=== PATIENT | male | born 1960 | race Caucasian/White ===

== ENCOUNTER → 2017-02-08 | Outpatient (CLI) | payer OTHER, BC ==
--- NOTE | 2017-02-08 10:15 | KCIC ---
PROCEDURE Orbits for foreign body. 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 Previous metal to right eye. TECHNIQUE Orbits with upward and downward gaze was performed. COMPARISON None. FINDINGS No radiopaque foreign body is apparent. IMPRESSION Negative for radiopaque foreign body. Electronically signed by: Darinel Bland MD (Feb 08, 2017 10:13:19)
--- NOTE | 2017-02-08 11:46 | KCIC ---
PROCEDURE MRI lumbar spine without contrast. HISTORY Low back strain. Injury 1 month ago pushing a pipe. Low back pain across waistline. TECHNIQUE Sagittal T1, sagittal T2, sagittal STIR, axial T1, and axial T2 sequences are provided. COMPARISON None. FINDINGS Grade 1 anterolisthesis at L5-S1 is likely secondary to bilateral pars defects at L5. There is otherwise no malalignment. There is no worrisome marrow lesion. There is no marrow edema. There is mild disc desiccation diffusely, greatest at L4-L5 and L5-S1. Disc height is narrowed at L5-S1. Conus medullaris is normal in signal intensity and in position. The numbering system assumes 5 lumbar type vertebral bodies. Findings by individual level are as follows: L1-L2: There is no canal or foraminal compromise. L2-L3: Minimal disc bulge and ligamentum flavum hypertrophy are noted with no canal or foraminal compromise. L3-L4: Mild disc bulge and mild ligamentum flavum hypertrophy are noted. There is minimal canal stenosis, midline AP diameter of the thecal sac still 11 millimeters. There is slight right lateral recess narrowing. There is minimal foraminal narrowing. L4-L5: Mild disc bulge and broad-based central protrusion are noted. There is minimal facet hypertrophy. There is an annular fissure associated with the protrusion. There is no canal stenosis, midline AP diameter of the thecal sac 13 millimeters. There is mild foraminal narrowing on the right and mild to moderate foraminal narrowing on the left, minimal fat surrounding the exiting nerve root on the left. L5-S1: There is unroofing of the disc in addition to the anterolisthesis. There is minimal facet hypertrophy. There is no canal stenosis. There is mild to moderate bilateral foraminal narrowing. IMPRESSION 1. Grade 1 anterolisthesis at L5-S1, likely secondary to L5 pars defects bilaterally. 2. Degenerative disc disease, facet hypertrophy, and ligamentum flavum hypertrophy are noted in the lumbar spine, without any high-grade canal stenosis. Findings are most notable at L4-L5 and L5-S1. Electronically signed by: Darinel Bland MD (Feb 08, 2017 11:44:35)
== END | disposition home or self-care (01) ==
LOC: KCIC MRI 09:14
PROVIDERS: ATTEND General Practice
DX: S39.012A Strain of muscle, fascia and tendon of lower back, initial encounter (principal); M51.36 Other intervertebral disc degeneration, lumbar region
CPT/HCPCS: 70030; 72148